=== PATIENT | male | born 1985 ===

== ENCOUNTER 2017-06-16 09:51 | Day surgery (SDC) | payer OTHER ==
[~2017-06-16] VITALS: Ht 188 cm; Wt 97.5 kg
[2017-06-16] VITALS (8 sets, daily range): BP systolic 114–138; BP diastolic 57–98
--- NOTE | 2017-06-16 07:27 | Pre-Procedure Note/Attestation ---
Pre-Procedure Note/Attestation Complete Prior to Procedure Planned Procedure: left Procedure Narrative: ankle arthroscopy, chondroplasty,synovectomy Indications for Procedure Pre-Operative Diagnosis: left ankle interal derangement Attestation I attest that I discussed the nature of the procedure; its benefits; risks and complications; and alternatives (and the risks and benefits of such alternatives ), prior to the procedure, with the patient (or the patient's legal passenger representative). I attest that, if there was a reasonable possibility of needing a blood transfusion, the patient (or the patient's legal passenger representative) was given the [facility] standardized written summary, pursuant to the Toi Shayla Blood Safety Act ([place] Health and Safety Code # 1645, as amended). I attest that I re-evaluated the patient just prior to the surgery and that there has been no change in the patient's H&P, except as documented below: TIMOTHY YOUSSEF Jun 16, 2017 07:27
--- NOTE | 2017-06-16 07:27 | Operative Note - PDOC ---
Operative Note Operative Note Pre-op Diagnosis: left ankle interal derangement Procedure: see op report Post-op Diagnosis: same as pre-op plus Operative Findings: consistent w/pre-op dx studies Anesthesia: regional Specimen: none Complications: none Condition: stable Estimated Blood Loss: none Implant(s) used?: TIMOTHY Ramachandran Jun 16, 2017 07:27
[~2017-06-16 09:51] MED LIST: D5 1/2NS 1,000 ML IV SCH; HYDROmorphone 1mg/ml Carpuject SUBQ PRN; Norco 5mg/325mg tab ORAL PRN; Tylenol #3 tab (300mg/30mg) ORAL PRN; ZOCOR40 MG ORAL; ceFAZolin 1gm in D5W 55ml IVP ONE; celeBREX 200mg Cap **SURGERY PATIENTS ONLY ORAL ONE; oxyCONTIN 20mg tab ORAL ONE
--- NOTE | 2017-06-16 12:47 | Anethesia Preoperative Eval ---
Anesthesia Pre-op PMH/ROS General Date of Evaluation: Jun 16, 2017 Anesthesiologist: Nicanor ASA Score: ASA 2 Mallampati Score Class I : Soft palate, uvula, fauces, pillars visible Class II: Soft palate, uvula, fauces visible Class III: Soft palate, base of uvula visible Class IV: Only hard plate visible Mallampati Classification: Class II Surgeon: Fermin Diagnosis: Left ankle hardware Surgical Procedure: Left ankle arthroscopy and hardware removal Anesthesia History: none Family History: no anesthesia problems Allergies: Coded Allergies: No Known Allergies (Unverified , 06/15/17) Medications: see eMAR Past Medical History Cardiovascular: Reports: other - HLD, Denies: HTN, CAD, ND, valve dz, arrhythmia Pulmonary: Denies: asthma, COPD, HELENE, other Gastrointestinal/Genitourinary: Denies: GERD, CRI, ESRD, other Neurologic/Psychiatric: Denies: dementia, CVA, depression/anxiety, TIA, other Endocrine: Denies: DM, hypothyroidism, steroids, other HEENT: Denies: cataract (L), cataract (R), glaucoma, [place] (L), [place] (R), other Hematology/Immune: Denies: anemia, DVT, bleeding disorder, other Musculoskeletal/Integumentary: Denies: OA, RA, DJD, DDD, edema, other PSxH Narrative: ORIF left tibia Anesthesia Pre-op Phys. Exam Physician Exam Last Vital Signs Date Time Temp Pulse Resp B/P (MAP) Pulse Ox O2 Delivery O2 Flow Rate FiO2 06/16/17 10:37 98.8 92 19 127/86 96 Room Air Constitutional: NAD Cardiovascular: RRR Respiratory: CTA Airway Exam Mallampati Score: Class II MO: full ROM: full Teeth: intact Anesthesia Pre-op A/P Labs see chart Studies Pre-op Studies: EKG - sr Risk Assessment & Plan Assessment: ASA II Plan: GA Status Change Before Surgery: No Pre-Antibiotics Drug: Ancef 2g Given Within 1 Hr of Incision: Yes Time Given: 14:00 ALANNA ROMAN M.D. Jun 16, 2017 12:47
[2017-06-16] MEDS ORDERED: Morphine Sulfate PF 10 ML ONE (13:23)
[2017-06-16] MEDS ORDERED: Ketorolac 30mg Inj ONE ×2 (13:24→13:45)
[2017-06-16] MEDS ORDERED: Bupivacaine 0.5% Inj 30 ml vial INJ ONE (13:24)
[2017-06-16] MEDS ORDERED: Kenalog-40 1ml Vial ONE (13:24)
[2017-06-16] MEDS ORDERED: Ketamine 500mg Inj ONE (13:45)
[2017-06-16] MEDS ORDERED: Sterile Water Irrig 1000ml IRRIG ONE (13:45)
[2017-06-16] MEDS ORDERED: Lidocaine 1% MPF 10mg/ml 5ml ONE (13:45)
[2017-06-16] MEDS ORDERED: fentaNYL 100 mcg/2 mL IV ONE (13:45)
[2017-06-16] MEDS ORDERED: Midazolam 2mg/2ml Inj ONE (13:45)
[2017-06-16] MEDS ORDERED: LR 1000ml ONE (13:45)
[2017-06-16] MEDS ORDERED: Propofol 200mg/20ml IV ONE (13:45)
[2017-06-16] MEDS ORDERED: Duramorph PF 10mg/10ml amp EPIDUR ONE (13:55)
[2017-06-16] MEDS ORDERED: NS Irrig 4000ml IRRIG ONE (13:55)
[2017-06-16] MEDS ORDERED: LR 1000ml 1,000 ML IVLG SCH (14:14)
--- NOTE | 2017-06-16 14:14 | Immediate Post-Op Evaluation ---
Immediate Post-Op Evalulation Immediate Post-Op Evalulation Procedure: Left ankle arthroscopy and hardware removal Date of Evaluation: Jun 16, 2017 Time of Evaluation: 16:17 IV Fluids: 1.1L Blood Products: 0 Estimated Blood Loss: min Urinary Output: 0 Blood Pressure Systolic: 116 Blood Pressure Diastolic: 51 Pulse Rate: 80 Respiratory Rate: 16 O2 Sat by Pulse Oximetry: 97 Temperature (Fahrenheit): 97.2 Pain Score (1-10): 0 Nausea: No Vomiting: No Complications 0 Patient Status: awake, reacts, patent, none Hydration Status: adequate Drug: Ancef 2g Given Within 1 Hr of Incision: Yes Time Given: 14:00 ALANNA ROMAN M.D. Jun 16, 2017 14:14
--- NOTE | 2017-06-16 14:14 | 48 Hour Post Anesthesia Eval ---
Post Anesthesia Evaluation Procedure: Left ankle arthroscopy and hardware removal Date of Evaluation: Jun 16, 2017 Airway: patent Nausea: No Vomiting: No Pain Intensity: 1 Hydration Status: adequate Cardiopulmonary Status: at baseline Mental Status/LOC: patient returned to baseline Post-Anesthesia Complications: 0 Follow-up care needed: ready to discharge ALANNA ROMAN M.D. Jun 16, 2017 14:14
[2017-06-16] MEDS ORDERED: Midazolam 2mg/2ml Inj IVP PRN (14:15)
[2017-06-16] MEDS ORDERED: Ketorolac 30mg Inj IV PRN (14:15)
[2017-06-16] MEDS ORDERED: Metoclopramide 10mg/2ml Inj IVP PRN (14:15)
[2017-06-16] MEDS ORDERED: Hydromorphone 0.5mg/0.5ml inj IVP PRN (14:15)
[2017-06-16] MEDS ORDERED: DiphenhydrAMINE 50mg/ml Inj IVP PRN (14:15)
[2017-06-16] MEDS ORDERED: LORazepam Inj 2mg/ml 1ml IV PRN (14:15)
[2017-06-16] MEDS ORDERED: fentaNYL 100 mcg/2 mL IV PRN (14:15)
--- NOTE | 2017-06-17 02:00 | Operative Note - Dictated ---
DATE OF OPERATION: 06/16/2017 PREOPERATIVE DIAGNOSES: 1. Status post open reduction and internal fixation of the left ankle fracture. 2. Internal derangement of the left ankle secondary to intraarticular loose bodies/chondral damage. POSTOPERATIVE DIAGNOSES: 1. Left ankle chondral damage. 2. Left ankle intraarticular loose body. 3. Left ankle painful hardware. PROCEDURE: 1. Left ankle arthroscopy with synovectomy. 2. Left ankle removal of intraarticular loose body. 3. Removal of left ankle hardware, 6-1/2 screws and plate. SURGEON: Eldon Lawrence M.D. ANESTHESIA: General popliteal. INDICATION FOR PROCEDURE: The patient is a pleasant gentleman who underwent open reduction and internal fixation of left ankle. He subsequently involved in an accident with worsening symptoms, difficulty ambulating. He had an MRI, which showed possible intraarticular loose body and chondral damage. He had pain along the hardware. Therefore, he underwent left ankle arthroscopy, possible synovectomy, chondroplasty, and removal of intraarticular loose body. We then proceeded to remove the hardware. Risks, limitations, expectations, and complications of procedure were discussed in detail. All questions were addressed. DESCRIPTION OF PROCEDURE: An informed consent was obtained. The patient was brought to the operating room and placed under general anesthesia. Tourniquet was applied on the left proximal thigh. Left leg was prepped and draped in sterile manner. Time-out was performed. Tibialis anterior tendon was identified. A 20-gauge needle was then placed into the anteromedial portal. Once it was appropriately distended with fluid, the skin was incised. Blunt dissection down to the capsule was performed. Trocar was introduced into the ankle joint. Using inside-out technique, a spinal needle was then placed within the anterolateral gutter. Care was taken to protect the superficial peroneal nerve. Once adequate position was confirmed, the skin was incised and blunt dissection down into the joint was performed. At this point, synovectomy was performed to better visualize the anterior compartment. Once the synovectomy was completed, the camera was placed through the anterolateral portal and there was loose intraarticular body that was mobile. This was then debrided and removed. Once that was done, the synovectomy along the medial gutter was performed. The patient of note was noted to have chondral damage along the talus that was full thickness. There was significant chondral damage in the tibiotalar joint. There were no additional loose bodies aside from the one anteriorly. At this point, after the left ankle arthroscopy, synovectomy, removal of intraarticular loose body and chondroplasty, the instruments removed. Portal sites were closed with nylon sutures. At this point, attention was turned towards the hardware. Lateral skin incision was then made. Blunt dissection down to the plate was performed. Three proximal screws, a syndesmotic screw, and two distal screws were then removed. Once I removed the plate, the distal half of the plate broke. Ultimately, the remaining plate was removed in its entirety. At this point, one of the interference screws was identified and attempt at removal was performed. However, one of the interference screws was broken. The other interference screw could not be find and it was felt . At this point, the wound was copiously irrigated. The skin was approximated with 2-0 Vicryl suture, 3-0 Monocryl sutures. Steri-Strips and a pressure dressing was applied. The patient was awoken and taken to recovery room with stable vital signs. ESTIMATED BLOOD LOSS: 50 mL. COMPLICATIONS: None. SPECIMENS: None. IMPLANTS: None. EXPLANTS: Include a broken one-third tibial plate, one syndesmotic screw, five cortical screws, and one additional broken cortical screw. Eldon Lawrence M.D. DR: Arron JOB#: [id number] CC:
== END 2017-06-16 18:00 | disposition home or self-care (01) ==
LOC: SUR 09:51
DX: T84.84XA Pain due to internal orthopedic prosthetic devices, implants and grafts, initial encounter (principal); M24.072 Loose body in left ankle; E78.5 Hyperlipidemia, unspecified; Z87.891 Personal history of nicotine dependence; X58.XXXA Exposure to other specified factors, initial encounter; Y93.9 Activity, unspecified; Y92.9 Unspecified place or not applicable
CPT/HCPCS: 20680; 29895; J0690; J1170; J1885; J2250; J2274; J2405; J2704; J3010; J3301; J3490; J7120; 94003; 94150